=== PATIENT | female | born 1955 | race Caucasian/White ===

== ENCOUNTER → 2017-07-19 | Outpatient (CLI) | payer BC ==
--- NOTE | 2017-07-21 14:47 | MM ---
Reason for exam: screening (asymptomatic). Last mammogram was performed 1 year ago. History: Patient is postmenopausal. Physical Findings: A clinical breast exam by your physician is recommended on an annual basis and results should be correlated with mammographic findings. MG 3D Screening Mammo W/Cad Bilateral CC and MLO view(s) were taken. Prior study comparison: July 08, 2016, bilateral MG 3d screening mammo w/cad. July 03, 2015, bilateral MG 3d screening mammo w/cad. The breast tissue is heterogeneously dense. This may lower the sensitivity of mammography. Finding: There are typically benign round calcifications in both breasts. There is a chronic nodularity in the left breast. There is no discrete abnormality. ASSESSMENT: Benign, BI-RAD 2 RECOMMENDATION: Routine screening mammogram of both breasts in 1 year.
== END | disposition home or self-care (01) ==
LOC: RADMAMWWP 15:05
PROVIDERS: ATTEND Family Medicine
DX: Z12.31 Encounter for screening mammogram for malignant neoplasm of breast (principal)
CPT/HCPCS: 77063; G0202

== ENCOUNTER → 2018-10-18 | Outpatient (CLI) | payer BC ==
--- NOTE | 2018-10-19 10:15 | MM ---
Reason for exam: screening (asymptomatic). Last mammogram was performed 1 year and 3 months ago. History: Patient is postmenopausal. Physical Findings: A clinical breast exam by your physician is recommended on an annual basis and results should be correlated with mammographic findings. MG 3D Screening Mammo W/Cad Bilateral CC and MLO view(s) were taken. Prior study comparison: July 19, 2017, bilateral MG 3d screening mammo w/cad. July 08, 2016, bilateral MG 3d screening mammo w/cad. The breast tissue is heterogeneously dense. This may lower the sensitivity of mammography. Stable benign calcifications. No significant changes when compared with prior studies. ASSESSMENT: Benign, BI-RAD 2 RECOMMENDATION: Routine screening mammogram of both breasts in 1 year.
== END ==
LOC: RADMAMWWP 07:25
PROVIDERS: ATTEND Family Medicine
DX: Z12.31 Encounter for screening mammogram for malignant neoplasm of breast (principal)
CPT/HCPCS: 77063; 77067

== ENCOUNTER → 2020-04-07 | Outpatient (CLI) | payer BC ==
--- NOTE | 2020-04-09 07:45 | MM ---
Reason for exam: screening (asymptomatic). Last mammogram was performed 1 year and 6 months ago. History: Patient is postmenopausal. Physical Findings: A clinical breast exam by your physician is recommended on an annual basis and results should be correlated with mammographic findings. MG 3D Screening Mammo W/Cad Bilateral CC and MLO view(s) were taken. Prior study comparison: October 18, 2018, bilateral MG 3d screening mammo w/cad. July 19, 2017, bilateral MG 3d screening mammo w/cad. There are scattered fibroglandular densities. Finding #1: There is an oval mass in the lower inner quadrant, middle position of the left breast. Finding #2: There are typically benign calcifications in both breasts. No significant changes in finding since October 18, 2018 and July 19, 2017. ASSESSMENT: Benign, BI-RAD 2 RECOMMENDATION: Routine screening mammogram of both breasts in 1 year.
== END | disposition home or self-care (01) ==
LOC: RADMAMWWP 13:09
PROVIDERS: ATTEND Family Medicine
DX: Z12.31 Encounter for screening mammogram for malignant neoplasm of breast (principal)
CPT/HCPCS: 77063; 77067

== ENCOUNTER → 2022-01-14 | Outpatient (CLI) | payer MEDICARE ==
--- NOTE | 2022-01-14 16:02 | BD ---
EXAMINATION TYPE: Axial Bone Density DATE OF EXAM: 01/14/2022 COMPARISON: 02.25.2003 CLINICAL HISTORY: 66 years year old Female. ICD-10 CODE: Z78.0 MENOPAUSAL STATE Height: 61.5 Weight: 185 FRAX RISK QUESTIONS: History of Fracture in Adulthood: YES Secondary Osteoporosis: RISK FACTORS HISTORY OF: Postmenopausal woman: YES MEDICATIONS: Additional Medications: BP MEDS, CHOLESTEROL MEDS, MULTIVITAMIN WITH CALCIUM, VITAMIN D Additional History: TOE FRACTURE EXAM MEASUREMENTS: Bone mineral densitometry was performed using the [employer]ek[employer] System. Bone mineral density as measured about the Lumbar spine is: ----- L1-L4(G/cm2): 1.088 T Score Values are as follows: ----- L1: -0.3 ----- L2: -1.3 ----- L3: -0.5 ----- L4: -1.1 ----- L1-L4: -0.8 Bone mineral density has: Decreased -4.9% since study of: 02.25.2003 Bone mineral density about the R hip (g/cm2): 0.965 Bone mineral density about the L hip (g/cm2): 0.943 T Score values are as follows: -----R Neck: -1.2 -----L Neck: -1.7 -----R Total: -0.3 -----L Total: -0.5 Bone mineral density has: Decreased -3.0% since study of: 02.25.2003 FRAX%s: The graph provided illustrates a 15.2% chance for a major osteoporotic fx and a 2.0% chance f or the hips probability for fx in 10 years time. IMPRESSION: Osteopenia (T Score between -2.5 and -1). There is slightly increased risk of fracture and the patient may be considered for treatment. Re-Screen 2-5 years. NOTE: T-SCORE=SD OF THE YOUNG ADULT MEAN.
== END | disposition home or self-care (01) ==
LOC: RADBDWWP 12:37
PROVIDERS: ATTEND Family Medicine
DX: Z12.31 Encounter for screening mammogram for malignant neoplasm of breast (principal); Z78.0 Asymptomatic menopausal state
CPT/HCPCS: 77063; 77067; 77080

== ENCOUNTER → 2022-02-24 | Outpatient (CLI) | payer MEDICARE ==
--- NOTE | 2022-02-24 14:17 | XR ---
Right foot HISTORY: Edema, erythema, question 3 views the right foot Hallux valgus deformity is present, associated soft tissue swelling present. Mineralization is mildly reduced. Joint spaces are maintained. There is no fracture or dislocation. There is a plantar calcan eal spur. IMPRESSION: Correlate for cellulitis. There is a plantar calcaneal spur, hallux valgus deformity
== END | disposition home or self-care (01) ==
LOC: RADXRMAIN 11:10
PROVIDERS: ATTEND Family Medicine
DX: L03.119 Cellulitis of unspecified part of limb (principal)

== ENCOUNTER → 2024-01-23 | Outpatient (CLI) | payer MEDICARE ==
--- NOTE | 2024-01-24 07:29 | CA ---
Transthoracic Echo Report Name: Tamara Payne Age: 68 Gender: F : 1955 Exam Date: 01/23/2024 14:04 Exam Location: [facility] Ht (in): 61 Wt (lb): 184 Ordering Physician: Alex Power DO Attending/Referring Phys: Kae Hanks [facility] [employer] Elizabeth Arevalo RDCS Procedure CPT: Indications: R01.1 cardiac murmur Cardiac Hx: Technical Quality: Good Contrast 1: Total Dose (mL): Contrast 2: Total Dose (mL): MEASUREMENTS (Male / Female) Normal Values 2D ECHO LV Diastolic Diameter PLAX 5.0 cm 4.2 - 5.9 / 3.9 - 5.3 cm LV Systolic Diameter PLAX 3.3 cm IVS Diastolic Thickness 0.9 cm 0.6 - 1.0 / 0.6 - 0.9 cm LVPW Diastolic Thickness 0.9 cm 0.6 - 1.0 / 0.6 - 0.9 cm LV Relative Wall Thickness 0.4 LVOT Diameter 2.1 cm LV Diastolic Volume MOD BP 80.2 cm??? 67 - 155 / 56 - 104 cm??? LV Systolic Volume MOD BP 28.1 cm??? 22 - 58 / 19 - 49 cm??? LV Ejection Fraction MOD BP 64.9 % >= 55 % LV Cardiac Index MOD BP 1964.6 cm???/min???m??? LV Diastolic Volume MOD 4C 81.2 cm??? LV Systolic Volume MOD 4C 30.7 cm??? LV Ejection Fraction MOD 4C 62.2 % LV Cardiac Index MOD 4C 1906.3 cm???/min???m??? LV Diastolic Length 4C 7.4 cm LV Systolic Length 4C 5.7 cm LV Diastolic Volume MOD 2C 73.9 cm??? LV Systolic Volume MOD 2C 26.0 cm??? LV Ejection Fraction MOD 2C 64.7 % LV Cardiac Index MOD 2C 1804.4 cm???/min???m??? LV Diastolic Length 2C 6.9 cm LV Systolic Length 2C 5.7 cm LA Volume 35.4 cm??? 18 - 58 / 22 - 52 cm??? LA Volume Index 18.3 cm???/m??? 16 - 28 cm???/m??? Ascending Aorta Diameter 3.6 cm DOPPLER AV Peak Velocity 198.1 cm/s AV Peak Gradient 15.7 mmHg AV Mean Velocity 135.4 cm/s AV Mean Gradient 8.2 mmHg AV Velocity Time Integral 42.3 cm LVOT Peak Velocity 119.6 cm/s LVOT Peak Gradient 5.7 mmHg LVOT Velocity Time Integral 24.6 cm LVOT Stroke Volume 81.3 cm??? LVOT Stroke Volume Index 44.6 ml/m??? LVOT Cardiac Index 3066.7 cm???/min???m??? AV Area Cont Eq vti 1.9 cm??? AV Area Cont Eq pk 2.0 cm??? MV Area PHT 3.8 cm??? Mitral E Point Velocity 72.5 cm/s Mitral A Point Velocity 76.7 cm/s Mitral E to A Ratio 0.9 MV Deceleration Time 197.3 ms TR Peak Velocity 240.2 cm/s TR Peak Gradient 23.1 mmHg Right Atrial Pressure 15.0 mmHg Pulmonary Artery Systolic Pressu 38.1 mmHg Right Ventricular Systolic Press 38.1 mmHg PV Peak Velocity 109.5 cm/s PV Peak Gradient 4.8 mmHg FINDINGS Left Ventricle Left ventricular ejection fraction is estimated at 55-60 %. Left ventricular cavity size normal. Left ventricular wall thickness normal. No obvious regional wall motion abnormalities. Right Ventricle Normal right ventricular size and function. Mildly elevated right ventricular systolic pressure. Right Atrium Normal right atrial size. Left Atrium Normal left atrial size. Mitral Valve Mitral valve thickened. No evidence for mitral valve prolapse. No mitral stenosis. [id number] mitral regurgitation. Aortic Valve Trileaflet aortic valve. No aortic valve stenosis or regurgitation. Tricuspid Valve Structurally normal tricuspid valve. No tricuspid stenosis. [id number] tricuspid regurgitation. Pulmonic Valve Structurally normal pulmonic valve. No pulmonic stenosis. Trace pulmonic regurgitation. Pericardium No pericardial effusion. Aorta Normal size aortic root and proximal ascending aorta. CONCLUSIONS 1. Normal left ventricular size and systolic function 2. [id number] mitral regurgitation 3. Mild to moderate tricuspid regurgitation with mild pulmonary hypertension Previewed by: Dr. Cornelia Whaley MD (Electronically Signed) Final Date: 24 January 2024 07:28
== END | disposition home or self-care (01) ==
LOC: RADECHMAIN 13:43
PROVIDERS: ATTEND Family Medicine
DX: R01.1 Cardiac murmur, unspecified (principal); I08.1 Rheumatic disorders of both mitral and tricuspid valves; I27.20 Pulmonary hypertension, unspecified
CPT/HCPCS: 93306